=== PATIENT | male | born 1985 | race Caucasian/White ===

== ENCOUNTER 2019-01-15 14:20 | Emergency (ER) | payer SELFPAY ==
[2019-01-15] MEDS: IBUPROFEN 200 MG TAB PO (16:30)
== END 2019-01-15 16:41 | disposition home or self-care (01) ==
LOC: FTE 14:20
DX: H60.501 Unspecified acute noninfective otitis externa, right ear (principal); J06.9 Acute upper respiratory infection, unspecified
CPT/HCPCS: 99283

== ENCOUNTER 2019-01-23 15:04 | Emergency (ER) | payer MEDICAID, OTHER | END 2019-01-23 16:45 | disposition home or self-care (01) | LOC: FTE 15:04 | DX: H60.91 Unspecified otitis externa, right ear (principal) | CPT/HCPCS: 99283; Z7502 ==